=== PATIENT | female | born 1970 | race Caucasian/White ===

== ENCOUNTER 2021-12-11 13:05 | Emergency (ER) | payer OTHER ==
[~2021-12-11] VITALS: Ht 157.5 cm; Wt 90.7 kg
[2021-12-11] MEDS ORDERED: METO100ER PO (13:55)
[2021-12-11] MEDS ORDERED: METF500 PO (13:56)
[2021-12-11] MEDS ORDERED: ALPR1 PO (13:56)
[2021-12-11] MEDS ORDERED: HYDCHL25 PO (13:56)
== END 2021-12-11 16:00 | disposition home or self-care (01) ==
LOC: ER 13:05
DX: R07.9 Chest pain, unspecified (principal); F41.9 Anxiety disorder, unspecified; F17.290 Nicotine dependence, other tobacco product, uncomplicated; Z60.9 Problem related to social environment, unspecified; Z88.1 Allergy status to other antibiotic agents; Z79.899 Other long term (current) drug therapy; Z79.84 Long term (current) use of oral hypoglycemic drugs
CPT/HCPCS: 93005; 93010; 99283-25